=== PATIENT | female | born 1945 | race Two or more races ===

== ENCOUNTER 2025-05-28 16:15 | Emergency (ER) | payer OTHER ==
[~2025-05-28] VITALS: Ht 165.1 cm; Wt 70.3 kg
[2025-05-28] MEDS ORDERED: ADULT LOW DOSE81 M1 PO (16:34)
[2025-05-28] MEDS ORDERED: MEMANTINE HCL10 MG PO (16:35)
[2025-05-28] MEDS ORDERED: VITAMIN D21250 MCG PO (16:35)
[2025-05-28] MEDS ORDERED: SERTRALINE20 MG/1 ML PO (16:35)
[2025-05-28] MEDS ORDERED: LIPITOR20 MG PO (16:35)
[2025-05-28] MEDS ORDERED: QUETIAPINE FUM400 M1 PO (16:35)
[2025-05-28] MEDS ORDERED: 0.9 % SODIUM CHLORIDE 1,000 ML IV SCH (17:15)
[2025-05-28 18:00] LABS: BASO % 0.3 % (0.1-1.2); EOS # 0.07 (0.04-0.54); EOS % 0.6 % (0.7-7.0); LYMPH # 1.87 (1.18-3.74); LYMPH % 15.4 % (19.3-53.1); MEAN PLATELET VOLUME 9.10 fl (9.4-12.4); MONO # 0.96 (0.24-0.82); MONO % 7.9 % (4.7-12.5); NEUT # 9.17 (1.56-6.13); NEUT % 75.6 % (34.0-71.1); RED CELL DISTRIBUTION WIDTH 11.8 % (11.6-14.4)
[2025-05-28 18:46] LABS: ALT/SGPT 30.0 U/L (12-78); AST/SGOT 19.0 U/L (15-37); BILIRUBIN TOTAL 0.35 mg/dL (0.3-1.2); BILIRUBIN,CONJUGATED 0.12 mg/dL (0.0-0.2); BUN CREA RATIO 27.0 (7.0-25.0); CREATININE SERUM 0.51 mg/dL (0.55-1.02); GFR 115.74; GLOBULINA 3.9 G/DL (2.4-3.5); GLUCOSE FASTING 111.0 mg/dL (65-100); OSMOLALITY SERUM 268.0 MOSM/KG (275-295)
[2025-05-30] MEDS ORDERED: TRAZODONE HCL150 MG (14:41)
== END 2025-05-29 12:05 | disposition home or self-care (01) ==
LOC: ER 16:15
PROVIDERS: General Practice
DX: R14.0 Abdominal distension (gaseous) (principal); Z88.1 Allergy status to other antibiotic agents; G30.8 Other Alzheimer's disease; F02.80 Dementia in other diseases classified elsewhere, unspecified severity, without behavioral disturbance, psychotic disturbance, mood disturbance, and anxiety; K56.41 Fecal impaction

== ENCOUNTER 2025-05-30 14:16 | Inpatient (IN) | payer OTHER ==
[~2025-05-30] VITALS: Ht 152.4 cm; Wt 63.5 kg
[~2025-05-30 14:16] MED LIST: ADULT LOW DOSE81 M1 PO; LIPITOR20 MG PO; MEMANTINE HCL10 MG PO; QUETIAPINE FUM400 M1 PO; SERTRALINE20 MG/1 ML PO; VITAMIN D21250 MCG PO
[2025-05-30] MEDS ORDERED: TRAZODONE HCL150 MG (14:41)
[2025-05-30 15:42] LABS: BASO % 0.4 % (0.1-1.2); EOS # 0.06 (0.04-0.54); EOS % 0.5 % (0.7-7.0); LYMPH # 2.32 (1.18-3.74); LYMPH % 20.9 % (19.3-53.1); MEAN PLATELET VOLUME 9.00 fl (9.4-12.4); MONO # 1.16 (0.24-0.82); MONO % 10.5 % (4.7-12.5); NEUT # 7.48 (1.56-6.13); NEUT % 67.4 % (34.0-71.1); RED CELL DISTRIBUTION WIDTH 11.8 % (11.6-14.4)
[2025-05-30 16:02] LABS: INR 1.0
[2025-05-30 16:05] LABS: BUN CREA RATIO 23.0 (7.0-25.0); CREATININE SERUM 0.53 mg/dL (0.55-1.02); GFR 110.71; GLUCOSE FASTING 108.0 mg/dL (65-100); OSMOLALITY SERUM 280.0 MOSM/KG (275-295)
[2025-05-30 16:29] LABS: COVID-19 AG NEGATIVE (NEGATIVE)
[2025-05-30] MEDS ORDERED: MEMANTINE HCL 10 MG TABLET PO SCH (21:34)
[2025-05-30] MEDS ORDERED: QUETIAPINE FUMARATE 25 MG TABLET PO SCH (21:34)
[2025-05-30] MEDS ORDERED: SERTRALINE HCL 50 MG TABLET PO SCH (21:34)
[2025-05-30] MEDS ORDERED: DEXTROSE 5 % AND 0.9 % NACL 1,000 ML IV SCH (21:45)
[2025-05-30] MEDS ORDERED: SODIUM PHOSPHATE,MONO-DIBASIC 230 ML ENEMA RECTAL ONE (21:45)
[2025-05-30] MEDS ORDERED: DOCUSATE SODIUM 100MG CAP PO PRN (21:45)
[2025-05-31 02:12] LABS: INR 1.05
[2025-05-31 04:36] LABS: URINE APPEARANCE Cloudy; URINE BILIRRUBIN Negative (NEGATIVE); URINE BLOOD Large; URINE COLOR Yellow; URINE GLUCOSE Negative (NEGATIVE); URINE KETONE Trace (NEGATIVE); URINE LEUKOCYTE Small; URINE NITRATE Positive; URINE PROTEIN 30 (NEGATIVE); URINE UROBILINOGEN 1.0 E.U./dl
[2025-05-31 04:39] LABS: URINE CAST 1.46 uL (0.0-1.40); URINE EPITHELIAL CELLS 5.2 uL (0.0-38.8); URINE RBC 206.9 uL (0.0-20.8); URINE WBC 81.8 uL (0.0-23.2)
[2025-05-31 04:48] LABS: URINE BACTERIA > 9821.5 uL (0.0-1933)
[2025-05-31 05:00] VITALS: BP 147/85; O2SAT 96
[2025-05-31 08:17] VITALS: BP 149/86; O2SAT 95
[2025-05-31] MEDS ORDERED: ENOXAPARIN SODIUM 40 MG/0.4 ML SYRINGE SUBCUTANEO SCH (09:00)
[2025-05-31 16:00] VITALS: BP 154/76; O2SAT 95
[2025-06-01 01:18] VITALS: BP 153/79; O2SAT 95
[2025-06-01 08:47] LABS: BUN CREA RATIO 25.0 (7.0-25.0); CREATININE SERUM 0.44 mg/dL (0.55-1.02); GFR 137.24; GLUCOSE FASTING 96.0 mg/dL (65-100); OSMOLALITY SERUM 277.0 MOSM/KG (275-295)
[2025-06-01 10:11] VITALS: BP 156/84; O2SAT 96
[2025-06-01 16:34] VITALS: BP 143/73; O2SAT 95
[2025-06-02 01:39] VITALS: BP 112/65; O2SAT 97
[2025-06-02 08:00] VITALS: BP 151/85; O2SAT 95
[2025-06-02 17:40] VITALS: BP 118/87; O2SAT 100
== END 2025-06-02 22:36 | disposition home or self-care (01) | DRG 395 ==
LOC: ER 14:16 → SURH 21:12
PROVIDERS: Emergency Medicine; General Practice; ADMIT Student in an Organized Health Care Education/Training Program; ATTEND Student in an Organized Health Care Education/Training Program
DX: K94.23 Gastrostomy malfunction (principal); K59.09 Other constipation; R14.0 Abdominal distension (gaseous); G30.9 Alzheimer's disease, unspecified; F02.80 Dementia in other diseases classified elsewhere, unspecified severity, without behavioral disturbance, psychotic disturbance, mood disturbance, and anxiety

== ENCOUNTER 2025-08-20 11:18 | Emergency (ER) | payer OTHER ==
[~2025-08-20] VITALS: Ht 165.1 cm; Wt 77.1 kg
[~2025-08-20 11:18] MED LIST changes: +TRAZODONE HCL150 MG
[2025-08-20] MEDS ORDERED: DIATRIZOATE MEGLUMINE, SODIUM 30 ML BOTTLE PO ONE (15:15)
== END 2025-08-20 18:17 | disposition home or self-care (01) ==
LOC: ER 11:18
DX: K94.23 Gastrostomy malfunction (principal); Z88.1 Allergy status to other antibiotic agents; G30.8 Other Alzheimer's disease; F02.80 Dementia in other diseases classified elsewhere, unspecified severity, without behavioral disturbance, psychotic disturbance, mood disturbance, and anxiety

== ENCOUNTER 2025-08-21 12:08 | Emergency (ER) | payer OTHER ==
[~2025-08-21] VITALS: Ht 157.5 cm; Wt 56.7 kg
[2025-08-21] MEDS ORDERED: DIATRIZOATE MEGLUMINE, SODIUM 30 ML BOTTLE PO STA (13:16)
== END 2025-08-21 14:39 | disposition home or self-care (01) ==
LOC: ER 12:08
DX: K94.23 Gastrostomy malfunction (principal); G30.9 Alzheimer's disease, unspecified; F02.80 Dementia in other diseases classified elsewhere, unspecified severity, without behavioral disturbance, psychotic disturbance, mood disturbance, and anxiety; Z88.8 Allergy status to other drugs, medicaments and biological substances